=== PATIENT | male | born 1980 | race Caucasian/White ===

== ENCOUNTER 2025-08-24 09:14 | Inpatient (IN) | payer BC, MEDICAID ==
[2025-08-24] VITALS (16 sets, daily range): BP systolic 96–141; BP diastolic 52–82; PULSE 61–85; RESP 14–27; TEMP 98.2–99.6; O2SAT 94–99
[~2025-08-24] VITALS: Ht 185.4 cm; Wt 101.6 kg
[~2025-08-24 09:14] MED LIST: CLIN-224 PO
--- NOTE | 2025-08-24 09:27 | Physician Documentation ---
History of Present Illness ~ Chief Complaint: Abscess Stated Complaint: GROIN ABSCESS Time Seen by MD: 09:26 Primary Medical Doctor: [facility] HPI This is a 45-year-old male who presents to the emergency department with concerns for a painful abscess in the perineum. He reports that he has had this issue on and off for several years, but usually with Sitz baths and conservative care of the area of the drain and he will feel better. Most recently, he has had pain for four days and notes a fever of 101. He denies chills or feeling flu-like. He denies chronic medical conditions such as diabetes, but does admit to psychiatric issues for which he is on psychiatric medications. Tetanus Within 5 Years: No Medication Reconciliation Allergies: Coded Allergies: No Known Allergies (Unverified , 08/24/25) Scheduled Clindamycin HCL* (Clindamycin HCL*), 1 CAP PO Q6H Past Medical History Past Medical History: Hypertension Past Surgical History: no surgical history Alcohol Use: None Drug Use: none Lives In: Home Review of Systems ROS As stated above in the HPI, otherwise all systems are reviewed and negative. Physical Exam Vital Signs: Temperature: 97.2, Source: Temporal, Heart Rate: 107, Respiratory Rate: 16, BP: 124/86, Pulse Oximetry: 96, Weight: 101.600 Oxygen Flow Rate: 0 Physical Exam General: Alert, no apparent distress. HEENT: PERRL, EOMI, no injection, moist mucous membranes. Neck: Full range of motion. Respiratory: Lungs clear, no respiratory distress. Chest: No accessory muscle use. Cardiovascular: Regular rate and rhythm, no murmurs. Gastrointestinal: Soft, nontender, nondistended. Bowels sounds present. : Large erythematous fluid collection at base of perineum not impacting testicles. No open area or drainage. Not impacting anus/rectum. Extremities: Normal range of motion, no deformity. Neurologic: Oriented x4. Psychiatric: Normal mood and affect. Skin: Normal color, warm and dry. No edema, no ecchymosis. Progress Progress Note 1215: Dailymotion.Style on Screen reports that patient has a perineal pocket of fluid measuring 1.7 cm x 1.9 cm x 3.47 cm with hypervascularity at borders. Called general surgeon Dr. Templeton who agrees to consult, requests contrasted CT. [place] [facility] [place]. Results/Orders Results/Orders Orders - RONEY PRYOR CD TECHNICIAN Culture Blood (08/24/25 09:27) Us Testic/W/Duplex (08/24/25 ) * Iv Access / Saline Lock * (08/24/25 10:27) Page Hospitalist (08/24/25 12:19) Ct Pelvis (08/24/25 12:21) Completed Orders - RONEY PRYOR CD TECHNICIAN Cbc/Diff (08/24/25 09:27) MG (08/24/25 09:27) Procalcitonin (08/24/25 09:27) BMP (08/24/25 09:27) Lacticsepsis (08/24/25 09:27) Normal Saline 1000ml (0.9% Sodium Chlori (08/24/25 10:30) Piperacillin/Tazo 4.5gm/100ml (Zosyn 4.5 (08/24/25 10:30) Ua W/Microscopic, Cult If Ind (08/24/25 10:32) Lactic,2hr (08/24/25 11:18) Medications Received in ER Medications (Trade) Dose Ordered Sig/Franki Route PRN Reason Start Time Stop Time Status Last Admin Dose Admin Sodium Chloride 1,000 ml @ 1,000 mls/hr ONCE ONCE IV 08/24/25 10:30 08/24/25 11:29 DC 08/24/25 10:58 1,000 MLS/HR Piperacillin/ Tazobactam/ Dextrose 100 ml @ 100 mls/hr STAT ONCE IV 08/24/25 10:30 08/24/25 11:29 DC 08/24/25 11:25 100 MLS/HR Vital Signs 08/24/25 09:17 Temp 97.2 Pulse 107 Resp 16 B/P (MAP) 124/86 Pulse Ox 96 O2 Flow Rate 0 Laboratory Tests Test 08/24/25 09:43 08/24/25 10:32 08/24/25 11:27 White Blood Count 7.3 Red Blood Count 4.02 L Hemoglobin 12.6 L Hematocrit 36.2 L Mean Corpuscular Volume 90.1 Mean Corpuscular Hemoglobin 31.5 H Mean Corpuscular Hemoglobin Concent 34.9 Red Cell Distribution Width 12.9 Platelet Count 177 Mean Platelet Volume 8.7 Neutrophils (%) (Auto) 71.5 Lymphocytes (%) (Auto) 15.6 L Monocytes (%) (Auto) 6.7 Eosinophils (%) (Auto) 5.1 Basophils (%) (Auto) 1.1 H Neutrophils # (Auto) 5.2 Lymphocytes # (Auto) 1.1 Monocytes # (Auto) 0.5 Eosinophils # (Auto) 0.4 Basophils # (Auto) 0.1 CBC Comment Sodium Level 140 Potassium Level 4.0 Chloride Level 107 Carbon Dioxide Level 24.5 Anion Gap 9 Blood Urea Nitrogen 8 Creatinine 1.51 H Estimated GFR/1.73 m2 50 BUN/Creatinine Ratio 5.3 L Glucose Level 150 H Lactic Acid Level 2.3 H 0.8 Calcium Level 8.4 L Magnesium Level 2.3 Albumin 3.1 L Procalcitonin < 0.05 Chemistry Comments Urine Specimen Description Cln catch midstream Urine Color Yellow Urine Clarity Clear Urine pH 6.0 Urine Specific [place] >=1.030 Urine Protein 100 H Urine Glucose (UA) Negative Urine Ketones Negative Urine Occult Blood Moderate H Urine Nitrite Negative Urine Bilirubin Negative Urine Urobilinogen 0.2 Urine Leukocyte Esterase Negative Urine RBC 10-20 Urine WBC 0-4 Urine Squamous Epithelial Cells Few Urine Bacteria Few Urine Mucus Moderate Urine Culture Indicated Not ind Volume Urine Centrifuged 10 ml Urine Comment Microbiology Date/Time Source Procedure Growth Status 08/24/25 09:44 Blood Arm Left Blood Culture - Preliminary NEGATIVE (LESS THAN 24 HOURS) Resulted Medical Decision Making Additional information obtaine: other Findings patient is a good historian and provided a full hx. Differential Dx:Considerations: Include: Other Additional Comment Perineal abscess, lactic acidosis. Consulted general surgery and [facility] hospitalist to evaluate for admission. Given one liter fluid and first dose Zosyn in ER. Most Likely Diagnoses: Perineal abscess: The location, history of prior spontaneous drainage, and current lack of drainage with fever are classic for a perineal or anorectal ab scess. These often present with pain, swelling, and sometimes fever, and may recur if underlying fistula or chronic disease is present.[1] Infected pilonidal disease: Pilonidal abscesses typically occur near the midline at the base of the scrotum or sacrococcygeal area, often with recurrent episodes and spontaneous drainage. Chronicity and midline pits are suggestive.[2] Hidradenitis suppurativa: Presents as recurrent, painful, deep-seated nodules or abscesses in intertriginous areas, including the perineum, with a history of flares and possible sinus tract formation.[3] Furuncle/carbuncle: Staphylococcal infections can cause abscesses, especially in hair-bearing areas, but are less likely to recur in the same location unless underlying risk factors exist.[4] Perianal fistula with secondary abscess: Recurrent abscesses may indicate a [id number], especially if there is a history of intermittent drainage.[1] Infected epidermoid cyst: These can present as tender, inflamed nodules, but are less likely to recur unless incompletely excised or chronically inflamed.[5] Most Important Not to Miss Diagnoses Dell gangrene (necrotizing fasciitis): This is a rapidly progressive, life- threatening infection of the perineum. Graves features include severe pain out of proportion to exam, systemic toxicity, crepitus, skin discoloration, and rapid progression. Rule out with careful physical exam, laboratory evaluation (CBC, CRP, creatinine, glucose), and consider imaging (CT) if stable, but do not delay surgical intervention if suspected.[6] Deep perineal necrotizing fasciitis: Similar to Dell gangrene, look for systemic signs (fever, tachycardia, hypotension), rapid progression, and tissue necrosis.[6] Departure Time of Disposition: 12:28 Disposition: 09 ADMITTED INPATIENT Admitted to Inpatient Unit: yes, to hospitalist Impression: Primary Impression: Abscess Condition: Stable Referrals: NO PRIMARY CARE PROVIDER (PCP) Signature Scribe Signature: x Attestation: The note accurately reflects work and decisions made by me.Roney Winkler NP 08/24/25 10:10 RONEY PRYOR NP Aug 24, 2025 09:27
[2025-08-24 10:00] LABS: MEAN PLATELET VOLUME 8.7 FL (7.4-10.4); RED CELL DISTRIBUTION WIDTH 12.9 % (11.5-14.5)
[2025-08-24 10:09] LABS: CREATININE 1.51 MG/DL (0.60-1.10); TOTAL CARBON DIOXIDE 24.5 MMOL/L (24-32); eCRCL 69 ML/MIN; eGFR 50 ML/MIN
[2025-08-24] MEDS: normal saline 1000ml 1,000 ML IV ONE (10:58)
[2025-08-24 11:08] LABS: LEUKOCYTE ESTERASE ,URINE NEGATIVE (Neg); NITRITES, URINE NEGATIVE (Neg); OCCULT BLOOD,URINE MODERATE (Neg)
[2025-08-24 11:17] LABS: UA COLLECTION TYPE CLN CATCH MIDSTREAM
[2025-08-24 11:18] LABS: MUCUS STRANDS MODERATE /LPF (Neg); SQUAMOUS EPITHELIAL CELL,UR FEW /LPF (FEW)
[2025-08-24] MEDS: piperacillin/tazo 4.5gm/100ml 100 ML IV ONE (11:25)
[2025-08-24] MEDS ORDERED: potassium Cl 20 mEq SR tablet PO PRN ×2 (12:25)
[2025-08-24] MEDS ORDERED: magnesium sulf-water 4G/100mL 100 ML IV PRN (12:25)
[2025-08-24] MEDS ORDERED: mag hydrox/Alum hydrox/simeth 30ml oral suspension PO PRN (12:25)
[2025-08-24] MEDS ORDERED: morphine 4 MG/ML inj SYRINge IV PRN ×3 (12:25→15:15)
[2025-08-24] MEDS ORDERED: HYDROcodone/acetaminophen 5mg/325mg tablet PO PRN (12:25)
[2025-08-24] MEDS ORDERED: magnesium Cl slow-release 64mg tablet PO PRN (12:25)
[2025-08-24] MEDS ORDERED: HYDROcodone/acetaminophen 10/325mg tab PO PRN (12:25)
[2025-08-24] MEDS ORDERED: magnesium sulf-water 2g/50mL 50 ML IV PRN (12:25)
[2025-08-24] MEDS ORDERED: ondansetron/PF 4mg/2ml inj IV PRN ×2 (12:25→15:15)
[2025-08-24] MEDS ORDERED: potassium Cl 40MEQ/1/2NS 520ml 520 ML IV PRN (12:25)
[2025-08-24] MEDS ORDERED: magnesium hydroxide 30ml (MOM) UD suspension PO PRN (12:25)
[2025-08-24] MEDS ORDERED: iohexol 300mg/ml 100ml inj. ONE (12:37)
--- NOTE | 2025-08-24 13:20 | RADIOLOGY REPORT ---
Exam: US US NON VASCULAR Date: 08/24/2025 12:11 PM Clinical History: abscess Comparison: None Technique: Targeted sonographic evaluation of the soft tissues of the inferior to the scrotum was obtained utilizing grayscale and color Doppler imaging. Findings/Impression: Complicated fluid collection with associated skin thickening and hyperemia is visualized in the soft tissues inferior to the scrotum measuring 3.5 x 1.6 x 1.9 cm which may represent cellulitis with abscess formation.
--- NOTE | 2025-08-24 13:26 | RADIOLOGY REPORT ---
CT CT PELVIS W/ IV CONTRAST INDICATION: perineal abscess TECHNIQUE: Volumetric multidetector CT images of the pelvis were obtained after the administration of intravenous contrast. CT scans at this facility use dose modulation, iterative reconstruction, and/or weight based dosing when appropriate to reduce radiation dose to as low as reasonably achievable. COMPARISON: US US NON VASCULAR on DOS: 08/24/25 FINDINGS: [BLADDER]: Unremarkable for the degree distention. [PELVIC ORGANS]: Unremarkable. [BOWEL/MESENTERY]: No CT evidence of bowel obstruction. Appendix is normal. There is no free air. In regards to the clinical question, peritoneal abscess anterior inferior to the anal verge and measures 4.5 x 1.2 x 1.8 cm. No definitive continuity through the external sphincter. [ASCITES]: Absent [LYMPHADENOPATHY]: No pathologically enlarged lymph nodes by CT size criteria [VASCULATURE]: Vascular calcifications. [ABDOMINAL WALL]: Unremarkable. [MUSCULOSKELETAL]: No acute fracture or aggressive focal osseous lesion. Multifocal degenerative change of the visualized spine. 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 IMPRESSION: 1. Perineal abscess anterior inferior to the anal verge.
--- NOTE | 2025-08-24 14:07 | HISTORY AND PHYSICAL ---
History & Physical Providers to ~ History of Present Illness Reason for Admit\Complaint: ANAL SWELLING AND PAIN History of Present Illness HISTORY OF PRESENT ILLNESS PATIENT IS A 45-YEAR-OLD GENTLEMAN WHO IS MORBIDLY OBESE DENIES ANY PAST MEDICAL HISTORY OF SIGNIFICANCE. HE SAYS ABOUT THREE DAYS AGO STARTED HAVING INCREASING PAIN IN HIS PERIANAL AREA MORBID TO IN THE AREA BETWEEN HIS SCROTUM AND HIS ANUS THIS HAS BEEN WORSENING OVER THE LAST 3-4 DAYS HE FINALLY DECIDED TO COME TO THE ER WHERE HE IS NOTED TO HAVE A PERIANAL ABSCESS AND IS BEING ADMITTED FOR POSSIBLE SURGICAL INTERVENTION WITH AN I&D. PATIENT DENIES ANY TRAUMA TO THE AREA. HE WAS PANCULTURED IN THE ER AND STARTED ON IV ZOSYN WHICH I HAVE CONTINUED. HIS PAIN IS IN FAIR CONTROL CONTINUE P.R.N. PAIN MEDICATIONS PATIENT DENIES ANY OTHER ASSOCIATED SYMPTOMS REVIEW OF SYSTEMS IS NEGATIVE FOR ALL 10 SYSTEMS REVIEWED. 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 EOMI. NECK IS SUPPLE NO JVD NO BRUIT CVS FIRST AND SECOND HEART SOUNDS ARE REGULAR RATE RHYTHM THERE IS NO MURMURS GALLOPS OR RUBS RESPIRATORY SYSTEM IS CLEAR TO AUSCULTATE BILATERALLY NO RALES RHONCHI CRACKLES OR WHEEZING ABDOMEN IS SOFT BOWEL SOUNDS ARE POSITIVE IT IS OBESE NONTENDER NONDISTENDED ON THE ANAL VERGE THERE IS FULLNESS FOREARM WARM TO TOUCH AREA ABOUT 3-4 CM EXTREMITIES NO CLUBBING CYANOSIS OR EDEMA NEUROLOGICAL EXAM NO FOCAL DEFICITS RECTAL IS DEFERRED SKIN IS INTACT Diagnostic Data Last Recorded Lab Results: 08/24/2543 08/24/25942 Additional Plan ASSESSMENT AND PLAN -PERIANAL ABSCESS SURGEON ON-CALL DR. GIFFORD CONSULTED BY THE ER PHYSICIAN CT OF THE PELVIS ORDERED PENDING RESULTS CONTINUE IV ZOSYN CONTINUE P.R.N. PAIN MEDICATIONS -ANEMIA MONITOR H&H CHECK MICRO AND MACRO PANEL -ACUTE RENAL FAILURE START THE PATIENT ON IV FLUIDS MONITOR BUN AND CREATININE -MORBIDLY OBESE PATIENT WOULD BENEFIT FROM WEIGHT LOSS -PATIENT IS STARTED ON DVT PROPHYLAXIS -PATIENT IS A FULL CODE BY HIS WISHES Date of Service: Aug 24, 2025 Billing Provider: NAYE FOX MD Common Visit Codes: [id number] INP/OBS CARE (HIGH) NAYE FOX MD Aug 24, 2025 14:06
[2025-08-24] MEDS ORDERED: QUET100T34 PO (14:14)
[2025-08-24] MEDS ORDERED: CITA20TA17 PO (14:14)
[2025-08-24] MEDS ORDERED: labetalol 20mg/4ml (5mg/ml) syringe IV PRN (15:15)
[2025-08-24] MEDS ORDERED: HYDROmorphone/PF 0.2 MG/ML SYRINGE IV PRN ×2 (15:15)
[2025-08-24] MEDS ORDERED: hydrALAZINE 20mg/ml inj. IV PRN (15:15)
[2025-08-24] MEDS: piperacillin/tazo 4.5gm/100ml 100 ML IV SCH (16:20)
[2025-08-24] MEDS: K and/or MAG REPLACEMENT MC SCH (20:00)
[2025-08-24] MEDS: docusate sod 100mg capsule PO SCH (20:00)
--- NOTE | 2025-08-24 20:07 | PROGRESS NOTE ---
Progress Note ID Providers to CC ~ Progress Note Progress Note: discussed procedure including risks/benefits/alternatives BOO OCHOA MD Aug 24, 2025 20:07
[2025-08-24] MEDS ORDERED: fentaNYL/PF 50MCG/1 ML 2ML syringe ONE (20:11)
[2025-08-24] MEDS ORDERED: MIDAZolam 1 MG/ML 5ML VIAL ONE (20:11)
[2025-08-24] MEDS ORDERED: ondansetron/PF 4mg/2ml inj ONE (20:16)
[2025-08-24] MEDS ORDERED: propofol inj 20 ML IV ONE (20:16)
[2025-08-24] MEDS ORDERED: LIDOcaine 1%/PF 5ML 10 MG/ML VIAL ONE (20:16)
[2025-08-24] MEDS ORDERED: acetaminophen 1,000mg/100ml IV 100 ML IV ONE (20:19)
[2025-08-24] MEDS ORDERED: dexamethasone sod phosphate 4mg/ml inj. ONE (20:21)
[2025-08-24] MEDS ORDERED: ketorolac trometh 30MG/ML vial 30 MG/ML VIAL ONE (20:21)
--- NOTE | 2025-08-24 20:36 | OPERATIVE REPORT ---
Operative Report Providers to CC ~ Date of Procedure: Aug 24, 2025 Pre-Operative Diagnosis: PERINEAL ABSCESS Post-Operative Diagnosis perineal phlegmon Procedure Performed i/d perineal mass Surgeon: chirag Engineering Surveyor none Anesthesiologist: Nathaniel Pringle Type of Anesthesia: General Findings: phlegmon-no pus Estimated Blood Loss: min Specimen Removed: culture BOO OCHOA MD Aug 24, 2025 20:36
[2025-08-24] MEDS: ringers solution, lacted 1,000 ML IV SCH (21:00)
[2025-08-25 00:10] VITALS: BP 105/63; PULSE 67; O2SAT 95
[2025-08-25 01:10] VITALS: BP 115/71; PULSE 64; RESP 18; TEMP 97.8; O2SAT 97
[2025-08-25 02:00] VITALS: BP 108/68; PULSE 73; RESP 18; TEMP 97.8; O2SAT 99
--- NOTE | 2025-08-25 02:10 | OPERATIVE REPORT ---
DATE OF SURGERY: 08/24/2025 DICTATING PHYSICIAN: Сергей Templeton MD PREOPERATIVE DIAGNOSES: Perineal abscess. POSTOPERATIVE DIAGNOSIS: Posterior phlegmon. PROCEDURE PERFORMED: I and D perineal phlegmon. SURGEON: Сергей Templeton MD CORRUGATOR: None. ANESTHESIA: General/Nathaniel Pringle MD. DRAINS: None. INDICATIONS FOR OPERATION: A 45-year-old male with history of perineal abscess, and perineal pain, CAT scan shows posterior perineal abscess, taken to surgery for drainage. INTRAOPERATIVE FINDINGS: Perineal phlegmon and cavity in the perineum. DESCRIPTION OF PROCEDURE: The patient was placed supine on the operating table. After induction of general anesthesia and placement of endotracheal tube, the perineum was prepped and draped. Incision was then made in the perineum over the area of question. fascia. Cavity was entered, but no obvious pus identified. Cultures were obtained. Excellent hemostasis was obtained. broken down using blunt dissection. The cavity had been adequately explored. The wound was simply packed. Dressing placed and the patient transferred to the recovery room in stable condition. Сергей Templeton MD TID: [id number] RECEIPT: [id number] ROSALBA/LUIS FERNANDO/KIR
[2025-08-25 04:53] LABS: MEAN PLATELET VOLUME 8.6 FL (7.4-10.4); RED CELL DISTRIBUTION WIDTH 12.5 % (11.5-14.5)
[2025-08-25 05:08] LABS: CREATININE 1.23 MG/DL (0.60-1.10); TOTAL CARBON DIOXIDE 27.3 MMOL/L (24-32); eCRCL 85 ML/MIN; eGFR 63 ML/MIN
[2025-08-25 05:24] LABS: APTT 29 SECONDS (22-32); INR 1.0 INR
--- NOTE | 2025-08-25 05:26 | ELECTROCARDIOGRAPH REPORT ---
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 ZANA Junior Measurements Intervals Homer Rate: 91 P: 41 OR: 130 QRS: 56 QRSD: 95 T: 36 QT: 372 QTc: 458 Interpretive Statements Sinus rhythm Electronically Signed On 08-25-2025 16:46:[address] ZANA Junior Please click the below link to view image of tracing.
[2025-08-25 06:45] VITALS: BP 111/60; PULSE 61; RESP 18; TEMP 98.6; O2SAT 97
[2025-08-25] MEDS: enoxaparin 40mg/0.4ml syringe SUBCUT SCH (07:31)
[2025-08-25 10:01] VITALS: BP 107/67; PULSE 75; RESP 26; TEMP 98; O2SAT 96
[2025-08-25] MEDS ORDERED: SULF1TAB49 PO (10:14)
[2025-08-25] MEDS ORDERED: LACT1CAP26 PO (10:14)
[2025-08-25] MEDS: ringers solution, lacted 1,000 ML IV SCH (11:14)
[2025-08-25] MEDS: ringers solution, lactated 500ml IV solution IV ONE (11:14)
--- NOTE | 2025-08-25 18:08 | DISCHARGE SUMMARY-Residence ---
Discharge Summary Providers to CC Resident Creating Document: TIMOTHY JACKSON RES ~ Discharge Summary Admission Diagnosis: PERINEAL ABSCESS Hospital Course DATE OF ADMISSION: 08/24/25 DATE OF DISCHARGE: 08/25/2025 Hospital course same as mentioned discharge summary. 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 Charles Complications: None Condition on DC: Stable New Medications: Lactobacillus Rhamnosus (Culturelle) 10 Billion Cell Capsule 1 CAP PO DAILY for 30 Days, #30 CAP 0 Refills Sulfamethoxazole/Trimethoprim (Bactrim Ds Tablet) 800 Mg-160 Mg Tablet 1 EACH PO BID for 10 Days, #20 TAB Continued Medications: Citalopram Hydrobromide (Citalopram HBr) 20 Mg Tablet 1 TAB PO DAILY Quetiapine Fumarate (Quetiapine Fumarate) 100 Mg Tablet 100 MG PO HS Discharge Summary: As per HPI: HISTORY OF PRESENT ILLNESS PATIENT IS A 45-YEAR-OLD GENTLEMAN WHO IS MORBIDLY OBESE DENIES ANY PAST MEDICAL HISTORY OF SIGNIFICANCE. HE SAYS ABOUT THREE DAYS AGO STARTED HAVING INCREASING PAIN IN HIS PERIANAL AREA MORBID TO IN THE AREA BETWEEN HIS SCROTUM AND HIS ANUS THIS HAS BEEN WORSENING OVER THE LAST 3-4 DAYS HE FINALLY DECIDED TO COME TO THE ER WHERE HE IS NOTED TO HAVE A PERIANAL ABSCESS AND IS BEING ADMITTED FOR POSSIBLE SURGICAL INTERVENTION WITH AN I&D. PATIENT DENIES ANY TRAUMA TO THE AREA. HE WAS PANCULTURED IN THE ER AND STARTED ON IV ZOSYN WHICH I HAVE CONTINUED. HIS PAIN IS IN FAIR CONTROL CONTINUE P.R.N. PAIN MEDICATIONS PATIENT DENIES ANY OTHER ASSOCIATED SYMPTOMS REVIEW OF SYSTEMS IS NEGATIVE FOR ALL 10 SYSTEMS REVIEWED. Hospital course: On further evaluation WBCs 8.2, procalcitonin less than 0.05. Pelvis CT showed a perineal abscess anterior inferior to the anal verge. Was started on IV antibiotics IV Zosyn and surgeon was consulted. Patient had the I and D done by Dr. Charles on 08/24/2025. Postop diagnosis perineal phlegmon. Wound Care was consulted and were following the patient. He had acute kidney injury likely secondary to vasomotor nephropathy was adequately fluid resuscitated creatinine improving. He has obesity with a BMI of 29. Postop he has been doing well and has been requesting for discharge, he improved significantly and has been cleared by the surgeon for discharge. Cultures NGTD. Has a wound care appointment set up. His hospital course is uncomplicated he is hemodynamically stable on the day of discharge. Medications can be found above. Patient is being discharged with the following advice: FOLLOW UP WITH PCP WITHIN A WEEK. RECOMMEDED TO KEEP THE WOUND AREA CLEAN. CAN USE PRN TYLENOL IF YOU HAVE PAIN. LIFESTYLE MODIFICATIONS, WEIGHT LOSS AND EXERCISE IS RECOMMENDED. CONTINUE ANTIBIOTIC BACTRIM BID FOR 10 DAYS AND THEN STOP. FOLLOW UP WITH SURGEON DR OCHOA ON OUTPATIENT BASIS. ENCOURGAED TO DRINK WATER ATLEAST 2 L DAILY. IF CONDITON WORSENS CALL 911 OR GO TO THE NEAREST ER IMMEDIATELY. [facility] outpatient wound care appointment. Aug 29 at 09:30. Please arrive 15-30 minutes early to complete paperwork. Come to the [facility] lobby and ask security to show you where to go. Thank you. *Problems/Diagnosis: (1) Abscess Status: Acute Total Time Spent on D/C: > 30 Minutes Date of Service: Aug 25, 2025 Billing Provider: NAYE FOX MD, ELIZABETH, RES Aug 25, 2025 17:58
--- NOTE | 2025-08-26 16:57 | CONSULTATION ---
DATE OF CONSULTATION: 08/24/2025 DICTATING PHYSICIAN: Сергей Templeton MD REASON FOR CONSULTATION: Evaluation for perineal abscess. HISTORY OF PRESENT ILLNESS: The patient is a 45-year-old male, who presented to the ER with complaints of perineal pain. CAT scan revealed evidence of an abscess. Surgical evaluation is now requested. On further questioning, the patient complains of previous similar episodes and complains of perineal pain, denies diabetes. PAST MEDICAL HISTORY: Hypertension. PAST SURGICAL HISTORY: Unremarkable. HOME MEDICATIONS INCLUDE: Clindamycin. ALLERGIES: None. SOCIAL HISTORY: No alcohol or drug use. REVIEW OF SYSTEMS: See H and P. PHYSICAL EXAMINATION: GENERAL: Well-nourished male . VITAL SIGNS: Unremarkable. HEART: Regular rate and rhythm. LUNGS: Clear to auscultation. ABDOMEN: Benign. GENITOURINARY: Perineal abscess. LABORATORY DATA: WBC of 7, hematocrit of 36 and platelet counts 177. Chemistries - BUN and creatinine 8 and 1.5. IMAGING STUDIES: CT abdomen and pelvis confirms the perineal abscess. IMPRESSION: 1. Perineal abscess. 2. Hypertension. PLAN: I and D. Сергей Templeton MD TID: [id number] RECEIPT: [id number] ROSALBA/SHIV
== END 2025-08-25 12:55 | disposition home or self-care (01) | DRG 394 ==
LOC: ER 09:14 → ED HOLD 12:35 → SUR 3N 17:00
PROVIDERS: ADMIT Internal Medicine; ATTEND Internal Medicine
PROC: BW2G1ZZ Computerized Tomography (CT Scan) of Pelvic Region using Low Osmolar Contrast (ICD-10-PCS; 2025-08-24)
PROC: 0WJM0ZZ Inspection of Male Perineum, Open Approach (ICD-10-PCS; principal; 2025-08-24 20:14)
DX: K61.0 Anal abscess (principal); L02.214 Cutaneous abscess of groin; E66.01 Morbid (severe) obesity due to excess calories; E11.9 Type 2 diabetes mellitus without complications; D64.9 Anemia, unspecified; I10 Essential (primary) hypertension; L02.215 Cutaneous abscess of perineum; Z87.891 Personal history of nicotine dependence; Z88.1 Allergy status to other antibiotic agents
CPT/HCPCS: 96361; 96365; 99285; Z7506; 36415; 72193; 76881; 80048; 80053; 81001; 82948; 83605; 83735; 84145; 85025; 85610; 85730; 87040; 87070; 87075; 87081; 93005; A4615; A4618; A6253; A6407; A6449; A7000; G0378; J0131; J1100; J1885; J2250; J2405; J2543; J2704; J3010; J3490; J7030; J7120; Q9967